=== PATIENT | male | born 2000 | race Hispanic/Latino ===

== ENCOUNTER 2020-09-26 13:08 | Observation (INO) | payer MEDICAID ==
[~2020-09-26] VITALS: Ht 170.2 cm; Wt 104.3 kg
[2020-09-26] MEDS ORDERED: ZOSYN 3.375GM+NS 50ML 50 ML IV SCH (14:00)
[2020-09-26] MEDS ORDERED: MORPHINE 4 MG SYG IVP ONE (14:15)
[2020-09-26] MEDS ORDERED: NACL 0.9% 1000ML 1,000 ML IV ONE (14:15)
[2020-09-26] MEDS ORDERED: ONDANSETRON 4MG INJ IVP ONE (14:15)
[2020-09-26] MEDS ORDERED: KETOROLAC 30MG VIAL (30MG/ML) IVP ONE (14:15)
[2020-09-26] MEDS ORDERED: 0.9% NACL 50ML 50 ML IV ONE (14:25)
[2020-09-26] MEDS ORDERED: VANCOMYCIN KIT 250 ML IV SCH (14:30)
[2020-09-26 15:00] VITALS: BP 144/85
[2020-09-26 15:01] LABS: BASOPHILS % (AUTO) 0.2 % (0.0-5.0); EOSINOPHILS % (AUTO) 0.4 % (0.0-8.0); HEMATOCRIT 44.9 % (42-54); LYMPHOCYTES % (AUTO) 8.9 % (21.0-51.0); MEAN CORPUSCULAR HEMOGLOBIN 30.9 pg (27.0-33.0); MEAN CORPUSCULAR HGB CONC 35.2 g/dL (32.0-36.0); MEAN CORPUSCULAR VOLUME 87.7 fL (80-100); MONOCYTES % (AUTO) 6.7 % (3.0-13.0); NEUTROPHILS % (AUTO) 83.4 % (40.0-77.0); PLATELET COUNT (AUTO) 276 K/uL (130-400); RED BLOOD CELL COUNT(AUTO) 5.12 MIL/uL (4.50-6.20); RED CELL DISTRIBUTION WIDTH 12.5 % (11.0-15.5); WHITE BLOOD COUNT (AUTO) 15.5 K/uL (4.8-10.8)
[2020-09-26 15:27] LABS: CREATININE 0.9 mg/dL (0.5-1.5); POTASSIUM 3.8 mmol/L (3.5-5.1)
[2020-09-26 15:32] LABS: ALBUMIN 3.5 g/dL (3.5-5.0); BILIRUBIN,TOTAL 0.4 mg/dL (0.2-1.0); TOTAL PROTEIN, SERUM 6.7 g/dL (6.0-8.3)
[2020-09-26 16:12] VITALS: BP 131/81
[2020-09-26] MEDS ORDERED: APAP-CODEINE 300/30MG TAB PO PRN (17:00)
[2020-09-26] MEDS ORDERED: MORPHINE 2 MG SYG IVP PRN (17:00)
[2020-09-26 17:21] VITALS: BP 124/67
[2020-09-26] MEDS ORDERED: CEFAZOLIN SODIUM 1 GM VIAL IVP SCH (17:30)
== END 2020-09-26 17:44 | disposition left against medical advice (07) ==
LOC: EDH 13:08 → EDHIP 13:09
PROVIDERS: ADMIT Surgery Plastic and Reconstructive Surgery; ATTEND Surgery Plastic and Reconstructive Surgery
DX: L03.113 Cellulitis of right upper limb (principal); Z20.822 Contact with and (suspected) exposure to COVID-19; L02.511 Cutaneous abscess of right hand
CPT/HCPCS: 36415; 73130; 80053; 83605; 85025; 87040 ×2; 87070; 87076; 87077; 87186; 87426; 87635; 96365; 96366; 96367; 96375; 99284; C9803; G0378 ×2; J1885; J2270; J2405; J2543; J3370; J7030

== ENCOUNTER 2022-05-02 23:50 | Emergency (ER) | payer MEDICAID ==
[~2022-05-02] VITALS: Ht 172.7 cm; Wt 117.9 kg
[2022-05-03 00:05] VITALS: BP 125/65
== END 2022-05-03 00:15 | disposition home or self-care (01) ==
LOC: EDH 23:50
DX: R23.3 Spontaneous ecchymoses (principal); R11.10 Vomiting, unspecified; J45.909 Unspecified asthma, uncomplicated

== ENCOUNTER 2022-05-08 16:04 | Emergency (ER) | payer MEDICAID ==
[~2022-05-08] VITALS: Ht 167.6 cm; Wt 117.9 kg
[2022-05-08 16:40] VITALS: BP 151/99
== END 2022-05-08 18:47 | disposition home or self-care (01) ==
LOC: EDH 16:04
DX: R50.9 Fever, unspecified (principal); Z20.822 Contact with and (suspected) exposure to COVID-19; Z53.21 Procedure and treatment not carried out due to patient leaving prior to being seen by health care provider
CPT/HCPCS: 87635; 87804 ×2; C9803

== ENCOUNTER 2022-08-16 18:04 | Emergency (ER) | payer MEDICAID ==
[~2022-08-16] VITALS: Ht 170.2 cm; Wt 115.7 kg
[2022-08-16 18:21] VITALS: BP 159/100
== END 2022-08-16 23:24 | disposition left against medical advice (07) ==
LOC: EDH 18:04
DX: R50.9 Fever, unspecified (principal); R10.9 Unspecified abdominal pain; R11.10 Vomiting, unspecified; Z53.21 Procedure and treatment not carried out due to patient leaving prior to being seen by health care provider; Z20.822 Contact with and (suspected) exposure to COVID-19
CPT/HCPCS: 99281; 87635; 87880; 87804 ×2; C9803

== ENCOUNTER 2023-12-17 13:44 | Emergency (ER) | payer SELFPAY ==
[~2023-12-17] VITALS: Ht 167.6 cm; Wt 104.3 kg
[2023-12-17 13:49] VITALS: BP 156/76; PULSE 99; RESP 18
[2023-12-17 14:25] LABS: BASOPHILS # (AUTO) 0.02 K/uL (0.00-0.20); BASOPHILS % (AUTO) 0.3 % (0.0-5.0); EOSINOPHILS # (AUTO) 0.02 K/uL (0.00-0.70); EOSINOPHILS % (AUTO) 0.3 % (0.0-8.0); HEMATOCRIT 42.7 % (42-54); IMMATURE GRANULOCYTE ABSOLUTE 0.02 K/uL (0-1); LYMPHOCYTES % (AUTO) 29.2 % (21.0-51.0); MEAN CORPUSCULAR HEMOGLOBIN 30.6 pg (27.0-33.0); MEAN CORPUSCULAR HGB CONC 35.1 g/dL (32.0-36.0); MEAN CORPUSCULAR VOLUME 87.1 fL (79-99); MONOCYTES # (AUTO) 0.4 K/uL (0.1-1.0); MONOCYTES % (AUTO) 5.8 % (3.0-13.0); NEUTROPHILS # (AUTO) 4.4 K/uL (1.8-7.7); NEUTROPHILS % (AUTO) 64.1 % (40.0-77.0); PLATELET COUNT (AUTO) 239 K/uL (130-400); RED CELL DISTRIBUTION WIDTH 12.9 % (11.0-15.5); WHITE BLOOD COUNT (AUTO) 6.9 K/uL (4.8-10.8)
[2023-12-17 14:28] LABS: APPEARANCE,URINE CLEAR (CLEAR); BILIRUBIN,URINE NEGATIVE (NEGATIVE); COLOR,URINE YELLOW (YELLOW); GLUCOSE, URINE (UA) NEGATIVE (NEGATIVE); KETONES,URINE NEGATIVE (NEGATIVE); LEUKOCYTE ESTERASE ,URINE NEGATIVE Leu/uL (NEGATIVE); NITRATE,URINE NEGATIVE (NEGATIVE); OCCULT BLOOD,URINE NEGATIVE (NEGATIVE); PH,URINE 6.5 (5.0-8.0); PROTEIN,URINE 20 mg/dL (NEGATIVE); UROBILINOGEN,URINE 0.2 mg/dL (0.2-1.0)
[2023-12-17 14:29] LABS: ADD UA MICROSCOPIC YES
[2023-12-17 14:34] LABS: AMPHET/METH SCREEN,URINE NEGATIVE (NEGATIVE); BARBITURATE SCREEN, URINE NEGATIVE (NEGATIVE); BENZODIAZEPINES SCREEN,URINE NEGATIVE (NEGATIVE); CANNABINOID SCREEN,URINE NEGATIVE (NEGATIVE); COCAINE SCREEN,URINE NEGATIVE (NEGATIVE); OPIATE SCREEN,URINE NEGATIVE (NEGATIVE); PHENCYCLIDINE SCREEN,URINE NEGATIVE (NEGATIVE)
[2023-12-17 14:40] LABS: POTASSIUM 3.9 mmol/L (3.5-5.1)
[2023-12-17 14:45] LABS: B-TYPE NATRIURETIC PEPTIDE 5 pg/mL (0-100); MUCUS,URINE RARE LPF (None Seen); RBC,URINE 0-1 /HPF (0-1)
== END 2023-12-17 15:24 | disposition home or self-care (01) ==
LOC: EDH 13:44
DX: S29.011A Strain of muscle and tendon of front wall of thorax, initial encounter (principal); M94.0 Chondrocostal junction syndrome [Tietze]; F41.9 Anxiety disorder, unspecified; J45.909 Unspecified asthma, uncomplicated; Z79.899 Other long term (current) drug therapy
CPT/HCPCS: 36415; 71045; 80048; 80305; 81001; 82550; 83880; 84484; 85025; 93005

== ENCOUNTER 2024-09-25 13:24 | Emergency (ER) | payer SELFPAY ==
[~2024-09-25] VITALS: Ht 167.6 cm; Wt 106.6 kg
--- NOTE | 2024-09-25 13:47 | EKG ---
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
--- NOTE | 2024-09-25 13:49 | ERN ---
ED Note History of Present Illness Stated Complaint: CHEST PAIN, COUGHING Chief Complaint: Chest Wall Pain Time Seen by MD: 13:26 Time Seen by Midlevel: 13:28 Dictation: 24-year-old male who presents to the emergency department due to reported having chest pain that is been off and on since yesterday. He states that the pain started today again at 6:00 a.m.. Patient states that the pain lasted approximately 1.5 hours. He does report having have a painful cough since yesterday. There is no report of any fever or chills associated with this. Patient denies having any runny nose or sore throat. He states that he does have a history of hypercholesterolemia and diabetes and is concerned that this might be related to that. Upon initial evaluation, the patient presents in no acute respiratory distress. Allergies: Coded Allergies: No Known Drug Allergies (Verified Allergy, 12/22/11) Emergency Care SNIPPER: None Past Medical History Past Medical History: No Pertinent History, Asthma Surgical History: None Family History: Negative Social History: Negative, Lives with family RN Note Reviewed/Agreed w/PFSH: Yes Review of System Dictation Cardiovascular: Chest pain Respiratory: Nonproductive cough Initial Vital Sign VS Vital Signs Date Time Temp Pulse Resp B/P (MAP) Pulse Ox O2 Delivery O2 Flow Rate FiO2 09/25/24 13:40 98.2 69 16 139/88 98 Room Air 0 09/25/24 13:55 21 Physical Exam Dictation General: awake, alert, NAD Head/Face: Normocephalic, atraumatic Eyes: PERRL, EOMI ENT: Oral mucosa moist Neck: Trachea midline, supple Cardiovascular: RRR, no edema Respiratory: Symmetrical, non-labored Abdomen: Soft, non-tender, non-distended, no guarding. Skin: Warm, dry, good turgor, no rash MS/Extremity: Pulses equal, no cyanosis, neurovascular intact, FROM Neuro: COAx4, GCS 15, steady gait, Psych: Normal behavior, mood, and affect normal Results (Laboratory/Radiology) Laboratory/Radiology Laboratory Tests Test 09/25/24 13:53 White Blood Count 7.1 K/uL (4.8-10.8) Red Blood Count 5.05 MIL/uL (4.50-6.20) Hemoglobin 15.4 g/dL (14.0-18.0) Hematocrit 44.5 % (42-54) Mean Corpuscular Volume 88.1 fL (79-99) Mean Corpuscular Hemoglobin 30.5 pg (27.0-33.0) Mean Corpuscular Hemoglobin Concent 34.6 g/dL (32.0-36.0) Red Cell Distribution Width 13.2 % (11.0-15.5) Platelet Count 256 K/uL (130-400) Mean Platelet Volume 9.7 fL (7.5-10.5) Immature Granulocyte % (Auto) 0.3 % (0-1) Neutrophils (%) (Auto) 56.7 % (40.0-77.0) Lymphocytes (%) (Auto) 33.8 % (21.0-51.0) Monocytes (%) (Auto) 7.9 % (3.0-13.0) Eosinophils (%) (Auto) 1.0 % (0.0-8.0) Basophils (%) (Auto) 0.3 % (0.0-5.0) Neutrophils # (Auto) 4.0 K/uL (1.8-7.7) Lymphocytes # (Auto) 2.4 K/uL (1.0-4.8) Monocytes # (Auto) 0.6 K/uL (0.1-1.0) Eosinophils # (Auto) 0.07 K/uL (0.00-0.70) Basophils # (Auto) 0.02 K/uL (0.00-0.20) Absolute Immature Granulocyte (auto 0.02 K/uL (0-1) Nucleated Red Blood Cells 0.0 % (0.0-0.19) Sodium Level 141 mmol/L (136-145) Potassium Level 4.1 mmol/L (3.5-5.1) Chloride Level 107 mmol/L (101-111) Carbon Dioxide Level 26 mmol/L (21-32) Blood Urea Nitrogen 20 mg/dL (7-18) H Creatinine 1.0 mg/dL (0.5-1.3) Glomerular Filtration Rate Calc 107 mL/min (>90) Random Glucose 98 mg/dL (70-105) Total Calcium 8.7 mg/dL (8.5-10.1) Total Bilirubin 0.7 mg/dL (0.2-1.0) Aspartate Amino Transf (AST/SGOT) 26 U/L (10-37) Alanine Aminotransferase (ALT/SGPT) 32 U/L (12-78) Alkaline Phosphatase 84 U/L (50-136) Troponin I High Sensitivity 5 ng/L (4-75) Total Protein 7.4 g/dL (6.0-8.3) Albumin 4.1 g/dL (3.5-5.0) Urine Opiates Screen NEGATIVE (NEGATIVE) Urine Barbiturates Screen NEGATIVE (NEGATIVE) Urine Phencyclidine Screen NEGATIVE (NEGATIVE) Urine Amphetamines Screen NEGATIVE (NEGATIVE) Urine Benzodiazepines Screen NEGATIVE (NEGATIVE) Urine Cocaine Screen NEGATIVE (NEGATIVE) Urine Marijuana (THC) Screen POSITIVE (NEGATIVE) H Influenza Type A Antigen Negative For Type A Influenza Type B Antigen Negative For Type B SARS-CoV-2 Antigen (Rapid) PRESUMPTIVE NEGATIVE Labs Reviewed?: Yes EKG: (+) NSR EKG Comment: EKG done 09/25/2024 at 1:44 p.m. Ventricular rate 68 beats per minute TX 127 MS QRS 96 MS QT 397 MS No STEMI. X-RAY Comment: Chest x-ray one view with no infiltrates and a normal-appearing cardiac silhouette as interpreted by me. ED Course ED Course Orders Procedure Category Date Status Time 12 Lead Ekg Tracing- EKG 09/25/24 Resulted Technical 13:39 Troponin I High LAB 09/25/24 Complete Sensitivity 13:40 Cbc With Differential LAB 09/25/24 Complete 13:40 Comprehensive LAB 09/25/24 Complete Metabolic Panel 13:40 Drug Screen Urine LAB 09/25/24 Complete 13:40 12 Lead Ekg Tracing- EKG 09/25/24 Logged Technical 13:40 Saline Lock Iv CPOE 09/25/24 Transmitted 13:40 Chest 1vw RAD 09/25/24 Resulted 13:40 Influenza Type A & B, LAB 09/25/24 Complete Rapid 13:49 Covid19 (Sars Antigen LAB 09/25/24 Complete Rapid) 13:49 Vital Signs Date Time Temp Pulse Resp B/P (MAP) Pulse Ox O2 Delivery O2 Flow Rate FiO2 09/25/24 13:55 98.2 65 16 136/85 98 Room Air* 0 21 09/25/24 13:40 98.2 69 16 139/88 98 Room Air 0 HEART Score Response (Comments) Value History: Low suspicion (0) 0 EKG: Normal 0 Age: < 45yrs (0) 0 Risk Factors: No known risk factors (0) 0 Initial Troponin: Normal limit (0) 0 HEART Score Risk: Low Risk for MACE (1-3) Total 0 Medical Decision Making MDM MDM: Differential diagnosis: Chest pain, STEMI, non STEMI, acute bronchitis. Rationale: Tests considered and ordered secondary to shared decision making include: Previous outside records reviewed: Old ER visits. Risk of complication and/or morbidity or mortality of patient management: None Medications-Per medication reconciliation Need for hospitalization: Patient does not meet criteria for hospitalization. Need for emergency major/minor surgery: No Heart score There are no social concerns with this patient. Prescription drug management Prescriptions will include symptomatic care Patient's prior external medical records from other ER visits were reviewed by me as indicated. Prior testing and results from previous visits were reviewed. Prior tests were taken into account with medical decision making and resource utilization, independent historian/historians were used to obtain complete medical history. I independently interpreted the test that were performed, results were reviewed by me and considered findings on radiology if ordered. Medical management and examination interpretation discussions were had by me with other qualified healthcare professionals as indicated for the patient's care. DX & DISP Disposition: Discharge Departure Impression: Primary Impression: Acute bronchitis Additional Impression: Chest pain Condition: Stable Scripts Prednisone (Prednisone) 20 Mg Tablet 1 TAB PO AD for 3 Days, #3 TAB 0 Refills TAKE 1 TAB BY MOUTH THREE TIMES PER DAY X3 DAYS, THEN TAKE 1 TAB BY MOUTH TWICE A DAY X2 DAYS, THEN TAKE 1 TAB BY MOUTH ONCE A DAY X1 DAY. Prov: KAROL DANIEL 09/25/24 Albuterol Sulfate (Ventolin Hfa/Proventil Hfa/Proair Hfa) 90 Mcg Puff 1-2 PUFF IH Q4H PRN for SHORTNESS OF BREATH for 5 Days, #1 INH 0 Refills PHARMACY TO DISPENSE 1 INHALER FOR USE Prov: KAROL DANIEL 09/25/24 Referrals: SELF,REFERRAL (PCP) KAROL DANIEL Sep 25, 2024 13:49
[2024-09-25 13:55] VITALS: BP 136/85; PULSE 65; RESP 16; TEMP 98.3; O2SAT 98
[2024-09-25 14:01] LABS: BASOPHILS # (AUTO) 0.02 K/uL (0.00-0.20); BASOPHILS % (AUTO) 0.3 % (0.0-5.0); EOSINOPHILS # (AUTO) 0.07 K/uL (0.00-0.70); HEMATOCRIT 44.5 % (42-54); IMMATURE GRANULOCYTE ABSOLUTE 0.02 K/uL (0-1); LYMPHOCYTES # (AUTO) 2.4 K/uL (1.0-4.8); LYMPHOCYTES % (AUTO) 33.8 % (21.0-51.0); MEAN CORPUSCULAR HEMOGLOBIN 30.5 pg (27.0-33.0); MEAN CORPUSCULAR HGB CONC 34.6 g/dL (32.0-36.0); MEAN CORPUSCULAR VOLUME 88.1 fL (79-99); MONOCYTES # (AUTO) 0.6 K/uL (0.1-1.0); MONOCYTES % (AUTO) 7.9 % (3.0-13.0); NEUTROPHILS % (AUTO) 56.7 % (40.0-77.0); PLATELET COUNT (AUTO) 256 K/uL (130-400); RED BLOOD CELL COUNT(AUTO) 5.05 MIL/uL (4.50-6.20); RED CELL DISTRIBUTION WIDTH 13.2 % (11.0-15.5); WHITE BLOOD COUNT (AUTO) 7.1 K/uL (4.8-10.8)
[2024-09-25 14:10] LABS: AMPHET/METH SCREEN,URINE NEGATIVE (NEGATIVE); BARBITURATE SCREEN, URINE NEGATIVE (NEGATIVE); BENZODIAZEPINES SCREEN,URINE NEGATIVE (NEGATIVE); CANNABINOID SCREEN,URINE POSITIVE (NEGATIVE); COCAINE SCREEN,URINE NEGATIVE (NEGATIVE); OPIATE SCREEN,URINE NEGATIVE (NEGATIVE); PHENCYCLIDINE SCREEN,URINE NEGATIVE (NEGATIVE); POTASSIUM 4.1 mmol/L (3.5-5.1)
[2024-09-25 14:14] LABS: ALBUMIN 4.1 g/dL (3.5-5.0); BILIRUBIN,TOTAL 0.7 mg/dL (0.2-1.0); TOTAL PROTEIN, SERUM 7.4 g/dL (6.0-8.3)
--- NOTE | 2024-09-25 14:16 | HMCIMG ---
Exam Type: CHEST 1VW Clinical Information: pain Comparison: None Findings: The lungs are clear of infiltrates. The heart is normal in size. The bony and soft tissue structures of the chest are unremarkable. Impression: Clear lungs.
[2024-09-25 14:23] LABS: COVID19 (SARS ANTIGEN RAPID) PRESUMPTIVE NEGATIVE (NEGATIVE); INFLUENZA TYPE A Negative For Type A (NEGATIVE); INFLUENZA TYPE B Negative For Type B (NEGATIVE)
[2024-09-25] MEDS ORDERED: PRED20TA3 PO (14:32)
[2024-09-25] MEDS ORDERED: ALBUHFA IH (14:32)
== END 2024-09-25 14:45 | disposition home or self-care (01) ==
LOC: EDH 13:24
DX: J20.9 Acute bronchitis, unspecified (principal); R07.89 Other chest pain; Z20.822 Contact with and (suspected) exposure to COVID-19
CPT/HCPCS: 36415; 71045; 80053; 80305; 84484; 85025; 87426; 87804; 93005; 99285